=== PATIENT | male | born 1960 | race Asian ===

== ENCOUNTER 2016-08-02 14:59 | Emergency (ER) | payer OTHER ==
[~2016-08-02] VITALS: Ht 167.6 cm; Wt 136.1 kg
[~2016-08-02 14:59] MED LIST: AMLO5TAB PO; COMBIGAN0.2 MG/0.5 OP; DICY20TA34 PO; FURO20TA67 PO; GABA300C2 PO; HYDR-2748 PO; HYDR10TA47 PO; LIPITOR20 MG PO; LISI20TA24 PO; LISI20TA31 PO; LUBI24CA PO; MELOXICAM15 MG PO; MOBIC15 MG PO; PANT40TA PO; POTA20TA4 PO; RANI150T78 PO; SPIRONOLACT25 MG PO; SYMBICORT1 AE1 INH; TRAM50TA PO; VIT E COMPLX400 UNIT PO; ZYRTEC ALLGY10 MG PO
[2016-08-02 15:00] VITALS: TEMP 98.9
[2016-08-02] MEDS ORDERED: LINZESS290 MCG OR (15:11)
[2016-08-02 15:56] LABS: PLATELET COUNT 201 K/uL (142-355)
[2016-08-02 16:08] LABS: POTASSIUM 3.4 mmol/L (3.6-5.2); SODIUM 138 mmol/L (136-145)
[2016-08-02 16:38] VITALS: BP 135/85
== END 2016-08-02 16:43 | disposition home or self-care (01) ==
LOC: ED 14:59
DX: M1A.9XX1 Chronic gout, unspecified, with tophus (tophi) (principal)
CPT/HCPCS: 36415; 80053; 84550; 85027; 96372; 99283; J1885

== ENCOUNTER 2018-01-21 09:35 | Emergency (ER) | payer OTHER ==
[~2018-01-21] VITALS: Ht 167.6 cm; Wt 145.2 kg
[~2018-01-21 09:35] MED LIST changes: +LINZESS290 MCG OR
[2018-01-21 10:05] VITALS: BP 135/81; TEMP 98.1
== END 2018-01-21 10:15 | disposition home or self-care (01) ==
LOC: ED 09:35
DX: K04.7 Periapical abscess without sinus (principal); K02.9 Dental caries, unspecified
CPT/HCPCS: 96372; 99282; J1885

== ENCOUNTER 2018-07-06 08:01 | Outpatient (CLI) | payer OTHER | END 2018-07-06 21:40 | disposition home or self-care (01) | LOC: CT 08:01 | DX: R07.9 Chest pain, unspecified (principal) | CPT/HCPCS: 36415; 82565; 84520; Q9963 ==

== ENCOUNTER 2019-01-03 08:12 | Outpatient (CLI) | payer OTHER | END 2019-01-03 23:31 | disposition home or self-care (01) | LOC: MRI 08:12 | DX: R51 Headache (principal) ==

== ENCOUNTER 2019-07-31 12:45 | Outpatient (CLI) | payer OTHER | END 2019-07-31 19:45 | disposition home or self-care (01) | LOC: MRI 12:45 | DX: G44.89 Other headache syndrome (principal) ==

== ENCOUNTER 2019-08-13 11:51 | Outpatient (CLI) | payer OTHER | END 2019-08-13 19:35 | disposition home or self-care (01) | LOC: RAD 11:51 | DX: M25.561 Pain in right knee (principal) ==

== ENCOUNTER 2020-05-13 11:11 | Outpatient (CLI) | payer OTHER | END 2020-05-13 20:21 | disposition home or self-care (01) | LOC: US 11:11 | DX: M79.605 Pain in left leg (principal) ==

== ENCOUNTER 2020-06-16 14:13 | Outpatient (CLI) | payer OTHER | END 2020-06-16 22:18 | disposition home or self-care (01) | LOC: US 14:13 | PROVIDERS: ATTEND Surgery | DX: R22.42 Localized swelling, mass and lump, left lower limb (principal) ==

== ENCOUNTER 2020-06-30 11:54 | Outpatient (CLI) | payer OTHER | END 2020-06-30 21:34 | disposition home or self-care (01) | LOC: CT 11:54 | PROVIDERS: ATTEND Surgery | DX: R22.42 Localized swelling, mass and lump, left lower limb (principal) | CPT/HCPCS: 36415; 82565; 84520; Q9963 ==

== ENCOUNTER 2020-08-18 10:27 | Outpatient (CLI) | payer OTHER | END 2020-08-18 19:18 | disposition home or self-care (01) | LOC: RAD 10:27 | PROVIDERS: ATTEND Family Medicine | DX: S16.1XXA Strain of muscle, fascia and tendon at neck level, initial encounter (principal) ==

== ENCOUNTER 2020-09-11 09:51 | Outpatient (CLI) | payer OTHER | END 2020-09-11 20:07 | disposition home or self-care (01) | LOC: MRI 09:51 | PROVIDERS: ATTEND Surgery | DX: R22.43 Localized swelling, mass and lump, lower limb, bilateral (principal) | CPT/HCPCS: 36415; 82565; 84520; A9576 ==

== ENCOUNTER 2020-09-12 09:32 | Outpatient (CLI) | payer OTHER | END 2020-09-12 20:54 | disposition home or self-care (01) | LOC: MRI 09:32 | PROVIDERS: ATTEND Surgery | DX: R22.43 Localized swelling, mass and lump, lower limb, bilateral (principal) | CPT/HCPCS: A9576 ==

== ENCOUNTER 2020-11-05 10:16 | Outpatient (CLI) | payer OTHER | END 2020-11-05 21:22 | disposition home or self-care (01) | LOC: MRI 10:16 | PROVIDERS: ATTEND Ophthalmology | DX: H40.1112 Primary open-angle glaucoma, right eye, moderate stage (principal); H05.89 Other disorders of orbit | CPT/HCPCS: 36415; 82565; 84520; A9576 ==

== ENCOUNTER 2021-05-18 09:14 | Outpatient (CLI) | payer OTHER ==
[2021-05-18 10:09] LABS: POTASSIUM 3.6 mmol/L (3.6-5.2)
== END 2021-05-18 19:21 | disposition home or self-care (01) ==
LOC: LABW 09:14
PROVIDERS: ATTEND Internal Medicine Gastroenterology
DX: R10.84 Generalized abdominal pain (principal)
CPT/HCPCS: 36415; 80053; 81000; 87086; 87088

== ENCOUNTER 2021-07-28 14:24 | Outpatient (CLI) | payer OTHER | END 2021-07-28 19:18 | disposition home or self-care (01) | LOC: MRI 14:24 | PROVIDERS: ATTEND Physical Medicine & Rehabilitation Pain Medicine | DX: M54.16 Radiculopathy, lumbar region (principal); M47.816 Spondylosis without myelopathy or radiculopathy, lumbar region ==

== ENCOUNTER 2021-09-06 04:59 | Emergency (ER) | payer OTHER ==
[~2021-09-06] VITALS: Ht 167.6 cm; Wt 145.2 kg
[2021-09-06 05:55] LABS: PLATELET COUNT 182 K/uL (142-355)
[2021-09-06 06:03] LABS: POTASSIUM 3.2 mmol/L (3.6-5.2)
[2021-09-06 06:50] VITALS: BP 134/82; TEMP 98.1
== END 2021-09-06 06:50 | disposition home or self-care (01) ==
LOC: ED 04:59
PROVIDERS: Emergency Medicine
DX: N39.0 Urinary tract infection, site not specified (principal); E87.6 Hypokalemia; R51.9 Headache, unspecified; I10 Essential (primary) hypertension
CPT/HCPCS: 36415; 80048; 81000; 85027; 96372; 99283; J0696

== ENCOUNTER 2021-09-30 09:02 | Outpatient (CLI) | payer OTHER | END 2021-09-30 19:01 | disposition home or self-care (01) | LOC: US 09:02 | PROVIDERS: ATTEND Nurse Practitioner Family | DX: R74.8 Abnormal levels of other serum enzymes (principal) ==

== ENCOUNTER 2021-10-06 15:32 | Emergency (ER) | payer OTHER ==
[~2021-10-06] VITALS: Ht 167.6 cm; Wt 145.1 kg
[2021-10-06 15:36] VITALS: BP 152/71; TEMP 97.9
== END 2021-10-06 16:54 | disposition home or self-care (01) ==
LOC: ED 15:32
DX: R51.9 Headache, unspecified (principal)
CPT/HCPCS: 96372; 99283; J1885; J2405

== ENCOUNTER 2021-10-09 10:56 | Observation (INO) | payer OTHER ==
[~2021-10-09] VITALS: Ht 167.6 cm; Wt 147.1 kg
[2021-10-09 11:52] LABS: PLATELET COUNT 197 K/uL (142-355)
[2021-10-09 12:09] VITALS: BP 146/82; TEMP 98.4; Ht 167.6 cm; Wt 147.1 kg
[2021-10-09 12:18] LABS: PARTIAL THROMBOPLASTIN TIME 24.3 SECONDS (24.5-33.6)
[2021-10-09 12:27] LABS: POTASSIUM 3.7 mmol/L (3.6-5.2)
[2021-10-09] MEDS ORDERED: OSEL75CA PO (13:07)
[2021-10-09] MEDS ORDERED: MONTELUKAST SOD10 MG PO (13:09)
[2021-10-09] MEDS ORDERED: DICL75TA4 PO (13:09)
[2021-10-09] MEDS ORDERED: LIPITOR20 MG PO (13:10)
[2021-10-09] MEDS ORDERED: ALLERCLEAR10 MG PO (13:11)
[2021-10-09] MEDS ORDERED: COLCHICINE0.6 M1 PO (13:11)
[2021-10-09] MEDS ORDERED: ALLERGY NA50 MCG/ACT NAS (13:13)
[2021-10-09] MEDS ORDERED: TRAMADOL HYDROC50 MG PO (13:13)
[2021-10-09] MEDS ORDERED: LUMIGAN0.01 % OPTH (13:14)
[2021-10-09] MEDS ORDERED: COMBIGAN0.2 MG/0.5 OPTH (13:15)
[2021-10-09 16:00] VITALS: BP 139/80; TEMP 98.4
[2021-10-09 19:57] VITALS: BP 155/81; TEMP 98.7
[2021-10-10] VITALS: BP 135/74; TEMP 98.3
[2021-10-10 04:00] VITALS: BP 131/76; TEMP 98.8
[2021-10-10 04:05] LABS: PLATELET COUNT 168 K/uL (142-355)
[2021-10-10 04:31] LABS: POTASSIUM 3.2 mmol/L (3.6-5.2)
[2021-10-10 08:00] VITALS: BP 139/71; TEMP 98.4
[2021-10-10 12:00] VITALS: BP 120/79; TEMP 98.6
[2021-10-10 16:00] VITALS: BP 132/75; TEMP 98.5
== END 2021-10-10 18:12 | disposition home or self-care (01) ==
LOC: MED/SURG 10:56
PROVIDERS: ADMIT Family Medicine; ATTEND Family Medicine
DX: R07.89 Other chest pain (principal); E86.0 Dehydration; J09.X2 Influenza due to identified novel influenza A virus with other respiratory manifestations; E78.49 Other hyperlipidemia; E66.8 Other obesity; I10 Essential (primary) hypertension; K21.9 Gastro-esophageal reflux disease without esophagitis
CPT/HCPCS: 36415; 80053; 82550; 83735; 83880; 84100; 84484; 85027; 85610; 85730; 87635; 93005; 94760; 96372; 99220; G0378; G0379; J1650; U0003

== ENCOUNTER 2021-10-16 23:43 | Emergency (ER) | payer OTHER ==
[~2021-10-16] VITALS: Ht 167.6 cm; Wt 140.6 kg
[~2021-10-16 23:43] MED LIST changes: +ALLERCLEAR10 MG PO; +ALLERGY NA50 MCG/ACT NAS; +COLCHICINE0.6 M1 PO; +COMBIGAN0.2 MG/0.5 OPTH; +DICL75TA4 PO; +LUMIGAN0.01 % OPTH; +MONTELUKAST SOD10 MG PO; +OSEL75CA PO; +TRAMADOL HYDROC50 MG PO
[2021-10-17 01:00] VITALS: BP 143/96; TEMP 98.8
== END 2021-10-17 01:00 | disposition home or self-care (01) ==
LOC: ED 23:43
DX: R51.9 Headache, unspecified (principal); K02.9 Dental caries, unspecified
CPT/HCPCS: 96372; 99283; J0696; J1200; J1885; J2405

== ENCOUNTER 2022-08-11 16:03 | Outpatient (CLI) | payer OTHER ==
[2022-08-11 16:38] LABS: POTASSIUM 3.3 mmol/L (3.6-5.2)
== END 2022-08-11 19:58 | disposition home or self-care (01) ==
LOC: LABW 16:03
PROVIDERS: ATTEND Nurse Practitioner Primary Care
DX: R60.0 Localized edema (principal); M10.9 Gout, unspecified
CPT/HCPCS: 36415; 80053; 83880; 84550

== ENCOUNTER 2022-08-13 12:50 | Outpatient (CLI) | payer OTHER | END 2022-08-13 19:31 | disposition home or self-care (01) | LOC: US 12:50 | PROVIDERS: ATTEND Nurse Practitioner Primary Care | DX: R60.0 Localized edema (principal) ==

== ENCOUNTER 2022-08-13 17:45 | Emergency (ER) | payer OTHER ==
[~2022-08-13] VITALS: Ht 167.6 cm; Wt 152.0 kg
[2022-08-13 17:49] VITALS: BP 175/74; TEMP 98.8
== END 2022-08-13 18:55 | disposition home or self-care (01) ==
LOC: ED 17:45
DX: R60.0 Localized edema (principal)
CPT/HCPCS: 99282

== ENCOUNTER → 2022-08-28 | Emergency (ER) | payer OTHER ==
[~2022-08-28] VITALS: Ht 167.6 cm; Wt 149.7 kg
[2022-08-28 13:30] VITALS: BP 157/76; TEMP 98.5
[2022-08-28 14:19] LABS: PLATELET COUNT 161 K/uL (142-355)
[2022-08-28 14:24] LABS: POTASSIUM 3.3 mmol/L (3.6-5.2)
== END ==
LOC: ED 13:25
PROVIDERS: Emergency Medicine
DX: R51.9 Headache, unspecified (principal); R04.0 Epistaxis; I10 Essential (primary) hypertension; R00.2 Palpitations; E11.65 Type 2 diabetes mellitus with hyperglycemia; R60.0 Localized edema; M54.59 Other low back pain; M51.36 Other intervertebral disc degeneration, lumbar region; M19.90 Unspecified osteoarthritis, unspecified site; E66.8 Other obesity
CPT/HCPCS: 36415; 80053; 83880; 84484; 85007; 85027; 85379; 93005; 99283

== ENCOUNTER 2022-08-30 09:58 | Outpatient (CLI) | payer OTHER | END 2022-08-30 19:06 | disposition home or self-care (01) | LOC: RESP 09:58 | PROVIDERS: ATTEND Nurse Practitioner Primary Care | DX: R60.0 Localized edema (principal) ==

== ENCOUNTER 2022-10-21 12:32 | Observation (INO) | payer OTHER ==
[2022-10-21] VITALS (12 sets, daily range): BP systolic 71–196; BP diastolic 51–111; TEMP 97.6–99.4; Ht 167.6 cm; Wt 155.7 kg
[~2022-10-21] VITALS: Ht 167.6 cm; Wt 155.7 kg
[2022-10-21 13:01] LABS: PLATELET COUNT 212 K/uL (142-355)
[2022-10-21 13:09] LABS: POTASSIUM 3.4 mmol/L (3.6-5.2); SODIUM 136 mmol/L (136-145)
[2022-10-21 13:28] LABS: PARTIAL THROMBOPLASTIN TIME 22.1 SECONDS (24.5-33.6)
[2022-10-21] MEDS ORDERED: HYDR-3182 PO (18:11)
[2022-10-21] MEDS ORDERED: XYZAL ALLERGY 245 MG PO (18:15)
[2022-10-21] MEDS ORDERED: GENTLE LAXAT5 MG PO (18:17)
[2022-10-21] MEDS ORDERED: PANTOPRAZOLE 40MG TA PO (18:20)
[2022-10-21] MEDS ORDERED: LINZESS145 MCG PO (18:24)
[2022-10-21] MEDS ORDERED: TRULANCE3 MG PO (18:25)
[2022-10-22 03:42] VITALS: BP 103/73; TEMP 98.9
[2022-10-22 08:00] VITALS: BP 123/62; TEMP 98.6
[2022-10-22 08:08] LABS: POTASSIUM 3.5 mmol/L (3.6-5.2)
[2022-10-22 11:31] VITALS: BP 115/68; TEMP 98.4
== END 2022-10-22 13:25 | disposition home or self-care (01) ==
LOC: ED 12:32 → MED/SURG 15:18
PROVIDERS: ADMIT Emergency Medicine; ATTEND Internal Medicine
DX: I95.89 Other hypotension (principal); N28.9 Disorder of kidney and ureter, unspecified; R53.1 Weakness; R07.89 Other chest pain; H40.89 Other specified glaucoma; E78.49 Other hyperlipidemia; G47.33 Obstructive sleep apnea (adult) (pediatric); I11.0 Hypertensive heart disease with heart failure; I50.9 Heart failure, unspecified; K21.9 Gastro-esophageal reflux disease without esophagitis; M15.8 Other polyosteoarthritis; M62.82 Rhabdomyolysis; E11.65 Type 2 diabetes mellitus with hyperglycemia
CPT/HCPCS: 36416; 80053; 82550; 83880; 84443; 84484; 85027; 85610; 85730; 93005; 96360; 96361; 99221; 99284; G0378; J1650

== ENCOUNTER 2022-11-04 08:51 | Outpatient (CLI) | payer OTHER ==
[~2022-11-04 08:51] MED LIST changes: +GENTLE LAXAT5 MG PO; +HYDR-3182 PO; +LINZESS145 MCG PO; +PANTOPRAZOLE 40MG TA PO; +TRULANCE3 MG PO; +XYZAL ALLERGY 245 MG PO
== END 2022-11-04 17:00 | disposition home or self-care (01) ==
LOC: US 08:51
PROVIDERS: ATTEND Nurse Practitioner Family
DX: E80.6 Other disorders of bilirubin metabolism (principal)

== ENCOUNTER 2022-11-12 08:37 | Outpatient (CLI) | payer OTHER | END 2022-11-12 19:12 | disposition home or self-care (01) | LOC: MRI 08:37 | PROVIDERS: ATTEND Nurse Practitioner Family | DX: R51.9 Headache, unspecified (principal) ==

== ENCOUNTER 2022-12-23 15:36 | Outpatient (CLI) | payer OTHER ==
[2022-12-23 16:33] LABS: PLATELET COUNT 185 K/uL (142-355)
[2022-12-23 16:47] LABS: POTASSIUM 3.5 mmol/L (3.6-5.2); SODIUM 137 mmol/L (136-145)
== END 2022-12-23 19:22 | disposition home or self-care (01) ==
LOC: RAD 15:36
PROVIDERS: ATTEND Nurse Practitioner Family
DX: R06.09 Other forms of dyspnea (principal); M79.604 Pain in right leg; M79.605 Pain in left leg
CPT/HCPCS: 36415; 80048; 82550; 82553; 83880; 84484; 85027; 93005

== ENCOUNTER 2023-03-10 09:47 | Outpatient (CLI) | payer OTHER ==
[2023-03-10 10:22] LABS: PLATELET COUNT 184 K/uL (142-355); POTASSIUM 3.3 mmol/L (3.6-5.2)
== END 2023-03-10 19:57 | disposition home or self-care (01) ==
LOC: LABW 09:47
PROVIDERS: ATTEND Nurse Practitioner Family
DX: R60.0 Localized edema (principal); R06.02 Shortness of breath
CPT/HCPCS: 36415; 80053; 83880; 84550; 85027